=== PATIENT | male | born 1965 | race Hispanic/Latino ===

== ENCOUNTER 2024-10-09 12:15 | Emergency (ER) | payer OTHER ==
[~2024-10-09] VITALS: Ht 182.9 cm; Wt 91.9 kg
[2024-10-09 12:30] VITALS: PULSE 77; RESP 20; TEMP 98.2; O2SAT 99
[2024-10-09] MEDS ORDERED: NAPROSYN500 MG PO (12:46)
== END 2024-10-09 12:56 | disposition home or self-care (01) ==
LOC: FSED 12:47
DX: M79.675 Pain in left toe(s) (principal); B35.1 Tinea unguium
CPT/HCPCS: 99284